=== PATIENT | female | born 1990 | race Caucasian/White ===

== ENCOUNTER 2016-06-24 18:42 | Emergency (ER) | payer BC, MEDICAID ==
[2016-06-24] MEDS ORDERED: LORAZEPAM 2 MG/ML VIAL IV ONE (19:05)
--- NOTE | 2016-06-24 19:05 | Emergency Department Record ---
History of Present Illness - General Chief Complaint: Numbness Stated Complaint: NUMBNESS IN ARM AND TIGHNESS IN CHEST Time Seen by Provider: 06/24/16 18:45 Source: Patient Mode of Arrival: Wheelchair Limitations: No limitations - History of Present Illness Initial Comments: 25 yo female presents to ED with a CC of "palpitations" and "numbness" that she reports feels different from her typical panic attacks. Patient reports that her symptoms began upon returning home from work this morning around 9:00, patient went to sleep, but awoke with the same symptoms this afternoon. Patient denies any health problems at her baseline, denies previous history of DVT/PE, denies calf pain or swelling. Patient does report that she has been using Hydroxycut as a weight loss supplement. Onset/Timin -: Hour(s) Location: Other History of same: No Place: Home Severity: Mild Quality: Burning Improves With: None Worsens With: None On Anticoagulants: No Associated Symptoms: Chest pain, Loss of appetite, Nausea/vomiting Treatments Prior to Arrival: None - Brittany Coma Scale Eye Response: (4) Open spontaneously Motor Response: (6) Obeys commands Verbal Response: (5) Oriented [place] Total: 15 - Related Data Home Medications: Previous Rx's Medication Instructions Recorded Lorazepam [Ativan] 1 mg PO Q6H PRN #5 tablet 06/24/16 Allergies/Adverse Reactions: Allergies Allergy/AdvReac Type Severity Reaction Status Date / Time Penicillins Allergy Severe ANAPHYLAXIS Verified 06/24/16 19:01 latex Allergy Intermediate RASH Verified 06/24/16 19:01 Travel Screening - Travel/Exposure Within Last 30 Days Have you traveled within the last 30 days?: No Review of Systems Constitutional: Denies: Chills, Fever, Malaise, Night sweats Eyes: Denies: Eye discharge, Eye pain ENT: Denies: Congestion, Ear pain, Epistaxis Respiratory: Denies: Cough, Dyspnea Cardiovascular: Reports: Chest pain, Palpitations. Denies: Dyspnea on exertion Endocrine: Denies: Fatigue, Heat or cold intolerance Gastrointestinal: Denies: Abdominal pain, Nausea, Vomiting Genitourinary: Denies: Dysuria, Frequency, Hematuria, Incontinence Musculoskeletal: Denies: Arthralgia, Back pain, Gout, Joint swelling Skin: Denies: Bruising, Change in color Neurological: Denies: Abnormal gait, Confusion, Headache, Seizure Psychiatric: Denies: Anxiety Hematological/Lymphatic: Denies: Anemia, Blood Clots Past Medical History - SOCIAL HISTORY Smoking Status: Current every day smoker Drug Use: None - RESPIRATORY Hx Respiratory Disorders: Yes Hx Asthma: Yes - CARDIOVASCULAR Hx Cardio Disorders: No - NEURO Hx Neuro Disorders: No - GI Hx GI Disorders: No - Hx Genitourinary Disorders: No - ENDOCRINE Hx Endocrine Disorders: No - MUSCULOSKELETAL Hx Musculoskeletal Disorders: No - PSYCH Hx Psych Problems: Yes Hx Anxiety: Yes Hx Depression: Yes - HEMATOLOGY/ONCOLOGY Hx Hematology/Oncology Disorders: No Physical Exam - General General Appearance: Alert, Oriented x3, Cooperative, No acute distress Limitations: No limitations - Head Head exam: Atraumatic, Normocephalic, Normal inspection Head exam detail: negative: Abrasion, Contusion, Loaiza's sign, General tenderness, Hematoma, Laceration - Eye Eye exam: Normal appearance. negative: Conjunctival injection, Periorbital swelling, Periorbital tenderness, Scleral icterus - ENT Ear exam: negative: Auricular hematoma, Auricular trauma Nasal Exam: negative: Active bleeding, Discharge, Dried blood, Foreign body, Sinus tenderness Mouth exam: negative: Drooling, Laceration, Muffled voice, Tongue elevation - Neck Neck exam: Normal inspection. negative: Meningismus, Tenderness - Respiratory Respiratory exam: Normal lung sounds bilaterally. negative: Respiratory distress, Rhonchi, Stridor, Wheezes - Cardiovascular Cardiovascular Exam: Regular rate, Normal rhythm, Normal heart sounds - GI/Abdominal GI/Abdominal exam: Soft. negative: Rebound, Rigid, Tenderness - Rectal Rectal exam: Deferred - exam: Deferred - Extremities Extremities exam: Normal inspection. negative: Calf tenderness, Pedal edema, Tenderness - Back Back exam: Denies: CVA tenderness (R), CVA tenderness (L) - Neurological Neurological exam: Alert, Normal gait, Oriented X3 - Psychiatric Psychiatric exam: Anxious - Skin Skin exam: Normal color. negative: Abrasion Type of lesion: negative: abrasion Course Vital Signs 06/24/16 18:51 Temperature 97.7 F Pulse Rate 85 Respiratory 20 Rate Blood Pressure 135/85 Pulse Ox 98 - Reevaluation(s) Reevaluation #1: 06/24/16 19:01 EKG: NSR 73 Normal axis, normal intervals T wave inversion in Lead III only Reevaluation #2: 06/24/16 19:54 Labs reviewed and are grossly unremarkable for an acute process, D-Dimer is negative as well. Patient reports that she is feeling much better, appears stable for discharge at this time. Medical Decision Making - Lab Data Result diagrams: 06/24/16 19:05 06/24/16 19:05 Disposition Disposition: Discharge Clinical Impression: Anxiety Chest pain Qualifiers: Chest pain type: unspecified Qualified Code(s): R07.9 - Chest pain, unspecified Disposition: Home, Self-Care Condition: (2) Stable Instructions: Anxiety (ED) Additional Instructions: Return to ED if your symptoms worsen or if you have any concerns. Ativan as directed. Follow-up with your family doctor in 3-5 days as directed. Prescriptions: Lorazepam [Ativan] 1 mg PO Q6H PRN #5 tablet PRN Reason: Anxiety Forms: Patient Portal Access Time of Disposition: 20:12
[2016-06-24 19:11] LABS: BASO % 0.2 % (0-6); EOS % 1.4 % (0-6); HEMATOCRIT 40.7 % (35.0-47.0); HEMOGLOBIN 13.7 gm/dl (11.6-16.0); LYMPH % 19.6 % (16-45); MEAN CELL VOLUME 93.3 fl (81-97); MEAN CORPUSCULAR HEMOGLOBIN 31.4 pg (27-33); MEAN CORPUSCULAR HGB CONC 33.7 g/dl (32-36); MEAN PLATELET VOLUME 9.1 fl (7.4-10.4); MONO % 6.8 % (0-9); PLATELET COUNT 324 K/uL (130-400); RED BLOOD COUNT 4.36 M/uL (3.80-5.40); RED CELL DISTRIBUTION WIDTH 12.6 % (11.5-14.5); WHITE BLOOD COUNT W/O DIFF 8.3 K/uL (4.2-12.2)
[2016-06-24] MEDS ORDERED: 0.9 % SODIUM CHLORIDE 1000ML 1,000 ML IV SCH (19:15)
[2016-06-24 19:28] LABS: ALB/GLOB RATIO 1.5 (1.1-1.8); ALBUMIN 4.5 gm/dL (3.5-5.0); ALKALINE PHOSPHATASE 55 U/L (38-126); ALT/SGPT 30 U/L (9-52); ANION GAP 10.9 (7-16); AST/SGOT 23 U/L (14-36); BILIRUBIN,TOTAL 0.63 mg/dL (0.2-1.3); BLOOD UREA NITROGEN 10 mg/dL (7-17); CARBON DIOXIDE 27.1 mmol/L (22-30); CREATININE 0.9 mg/dL (0.52-1.04); EST GLOMERULAR FILTRATION RATE > 60 ml/min; GLUCOSE,RANDOM 99 mg/dL (70-110); TOTAL PROTEIN 7.6 gm/dL (6.3-8.2)
== END 2016-06-24 20:27 | disposition home or self-care (01) ==
LOC: ER 18:42
DX: R07.9 Chest pain, unspecified (principal); R11.2 Nausea with vomiting, unspecified; F41.9 Anxiety disorder, unspecified
CPT/HCPCS: 99284 ×2; 96374; 96361; 85025; 80053; 85379; 93005; 93010; J2060; J7030